=== PATIENT | female | born 1985 ===

== ENCOUNTER 2020-09-08 16:33 | Outpatient (REF) | payer MEDICAID, SELFPAY ==
[2020-09-12 10:07] LABS: COVID-19 RT-PCR Result NEGATIVE (Negative)
== END 2020-09-08 16:53 ==
LOC: NCHCN 16:33
PROVIDERS: PCP Nurse Practitioner Family; Visit Provider Nurse Practitioner Family
DX: Z11.59 Encounter for screening for other viral diseases (principal)
CPT/HCPCS: U0003